=== PATIENT | female | born 1965 | race African-American/Black ===

== ENCOUNTER 2017-07-30 14:31 | Emergency (ER) | payer BC ==
[2017-07-30 15:50] LABS: FECAL OB PT POSITIVE (NEG); NEG OBC FOB NEG; POS OBC FOB POS
== END 2017-07-30 15:59 | disposition home or self-care (01) ==
LOC: ER 14:31
DX: K64.4 Residual hemorrhoidal skin tags (principal); K92.1 Melena; K92.0 Hematemesis; F17.210 Nicotine dependence, cigarettes, uncomplicated; Z71.6 Tobacco abuse counseling; Z90.49 Acquired absence of other specified parts of digestive tract; Z90.710 Acquired absence of both cervix and uterus; Z88.0 Allergy status to penicillin
CPT/HCPCS: 82274; 99283